=== PATIENT | male | born 1955 | race Caucasian/White ===

== ENCOUNTER 2016-09-27 17:35 | Emergency (ER) | payer OTHER ==
[~2016-09-27] VITALS: Ht 175.3 cm; Wt 82.0 kg
[2016-09-27] MEDS ORDERED: CYCLOBENZAPRINE 10MG TABLET PO ONE (19:15)
[2016-09-27] MEDS ORDERED: IBUPROFEN 600MG TABLET PO ONE (19:15)
[2016-09-27 19:40] VITALS: BP 142/95
== END 2016-09-27 20:05 | disposition home or self-care (01) ==
LOC: ER 18:09
DX: S46.912A Strain of unspecified muscle, fascia and tendon at shoulder and upper arm level, left arm, initial encounter (principal); I10 Essential (primary) hypertension; Z88.0 Allergy status to penicillin; V49.9XXA Car occupant (driver) (passenger) injured in unspecified traffic accident, initial encounter; Y93.89 Activity, other specified; Y99.8 Other external cause status; Y92.411 Interstate highway as the place of occurrence of the external cause
CPT/HCPCS: 73030; 99284; A4565